=== PATIENT | female | born 2000 | race Caucasian/White ===

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

== ENCOUNTER 2018-01-16 00:37 | Emergency (ER) | payer OTHER ==
[~2018-01-16] VITALS: Ht 170.1 cm; Wt 90.7 kg
[2018-01-16 00:37] VITALS: BP 134/68
[~2018-01-16 00:37] MED LIST changes: +ANAPROX DS550 MG PO
[2018-01-16] MEDS ORDERED: ZYRTEC10 MG PO (01:44)
[2018-01-16] MEDS ORDERED: DELTASONE20 M1 PO (01:44)
[2018-01-16] MEDS ORDERED: TESSALON PERLE100 M1 PO (01:44)
== END 2018-01-16 01:44 | disposition home or self-care (01) ==
LOC: ED 00:37
DX: B34.9 Viral infection, unspecified (principal); Z79.1 Long term (current) use of non-steroidal anti-inflammatories (NSAID)

== ENCOUNTER 2018-04-16 18:41 | Emergency (ER) | payer OTHER ==
[~2018-04-16] VITALS: Wt 90.7 kg
[~2018-04-16 18:41] MED LIST changes: +DELTASONE20 M1 PO
[2018-04-16 18:43] VITALS: BP 130/81
[2018-04-16 19:32] LABS: BASO % 0.3 % (0.0-1.0); EOS # 0.1 10*3/uL (0.0-0.4); EOS % 0.8 % (1.0-4.0); HEMATOCRIT 39.4 % (37.0-47.0); HEMOGLOBIN 13.9 g/dl (12.0-16.0); LYMPH # 2.1 10*3/uL (1.3-4.4); LYMPH % 15.4 % (27.0-41.0); MEAN CELL VOLUME 87.2 fl (81.0-99.0); MEAN CORPUSCULAR HGB 30.8 pg (27.0-31.0); MEAN CORPUSCULAR HGB CONC 35.3 g/dl (33.0-37.0); MEAN PLATELET VOLUME 9.9 fl (9.6-12.3); MONO # 0.8 10*3/uL (0.1-1.0); MONO % 5.7 % (3.0-9.0); NEUT # 10.3 10*3/uL (2.3-7.9); NEUT % 77.3 % (47.0-73.0); PLATELET COUNT AUTOMATED 256 10*3/uL (130-400); RED BLOOD COUNT 4.52 10*6/uL (4.10-5.10); RED CELL DISTRI WIDTH 12.5 % (0-14.5); WHITE BLOOD COUNT 13.3 10*3/uL (4.8-10.8)
[2018-04-16 19:49] LABS: ALBUMIN 3.7 gm/dl (3.1-4.5); ALKALINE PHOSPHATASE 104 U/L (45-117); BUN 8 mg/dl (7-24); CHLORIDE 107 mmol/L (98-107); POTASSIUM 3.6 mmol/L (3.5-5.1); SGOT/AST 20 IU/L (3-35); SGPT/ALT 31 U/L (12-78); SODIUM 139 mmol/L (136-145); TOTAL PROTEIN 7.7 gm/dL (6.4-8.2)
[2018-04-16 19:54] LABS: BILIRUBIN 2+ (NEGATIVE); BLOOD NEGATIVE (NEGATIVE); CLARITY SL CLOUDY (CLEAR); COLOR YELLOW (YELLOW); GLUCOSE NEGATIVE (NEGATIVE); KETONE 2+ (NEGATIVE); LEUKO ESTERASE 1+ (NEGATIVE); NITRITE NEGATIVE (NEGATIVE); SPECIFIC GRAVITY >= 1.030 (1.005-1.030); UROBILINOGEN 0.2 E.U./dl (0.2-1.0)
[2018-04-16 20:08] LABS: BACTERIA 2+; EPITHELIAL CELLS TNTC; RBC 0-2 rbc/hpf (0-2)
[2018-04-16 20:09] LABS: MUCOUS TRACE
[2018-04-16] MEDS ORDERED: CEPHALEXIN500 M1 PO (21:29)
== END 2018-04-16 22:00 | disposition home or self-care (01) ==
LOC: ED 18:41
PROVIDERS: Nurse Practitioner Family
DX: O23.42 Unspecified infection of urinary tract in pregnancy, second trimester (principal); O21.9 Vomiting of pregnancy, unspecified; Z3A.16 16 weeks gestation of pregnancy

== ENCOUNTER 2018-06-11 08:36 | Emergency (ER) | payer OTHER ==
[~2018-06-11] VITALS: Ht 170.1 cm; Wt 112.5 kg
[2018-06-11 10:05] VITALS: BP 167/90
[2018-09-17] MEDS ORDERED: SEPTDS PO (00:37)
== END 2018-06-11 10:03 | disposition home or self-care (01) ==
LOC: ED 08:36
DX: O26.892 Other specified pregnancy related conditions, second trimester (principal); L02.31 Cutaneous abscess of buttock; Z3A.20 20 weeks gestation of pregnancy; Z79.2 Long term (current) use of antibiotics; Z79.899 Other long term (current) drug therapy

== ENCOUNTER 2018-08-15 05:45 | Emergency (ER) | payer MEDICAID ==
[~2018-08-15] VITALS: Ht 170.1 cm; Wt 125.7 kg
[2018-08-15 06:26] LABS: HEMATOCRIT 35.5 % (37.0-47.0); HEMOGLOBIN 12.1 g/dl (12.0-16.0); MEAN CELL VOLUME 91.5 fl (81.0-99.0); MEAN CORPUSCULAR HGB 31.2 pg (27.0-31.0); MEAN CORPUSCULAR HGB CONC 34.1 g/dl (33.0-37.0); MEAN PLATELET VOLUME 10.6 fl (9.6-12.3); PLATELET COUNT AUTOMATED 221 10*3/uL (130-400); RED BLOOD COUNT 3.88 10*6/uL (4.10-5.10); RED CELL DISTRI WIDTH 13.3 % (0-14.5); WHITE BLOOD COUNT 22.7 10*3/uL (4.8-10.8)
[2018-08-15 06:39] LABS: ALBUMIN 2.6 gm/dl (3.1-4.5); ALKALINE PHOSPHATASE 223 U/L (45-117); BUN 7 mg/dl (7-24); CHLORIDE 105 mmol/L (98-107); LIPASE 44 U/L (73-393); POTASSIUM 3.8 mmol/L (3.5-5.1); SGOT/AST 19 IU/L (3-35); SGPT/ALT 31 U/L (12-78); SODIUM 137 mmol/L (136-145); TOTAL PROTEIN 7.1 gm/dL (6.4-8.2)
[2018-08-15 06:44] LABS: PLATELET SUFFICIENCY NORMAL (NORMAL); TOTAL CELLS COUNTED 100 #CELLS
[2018-08-15 07:03] LABS: BILIRUBIN 1+ (NEGATIVE); BLOOD NEGATIVE (NEGATIVE); CLARITY SL CLOUDY (CLEAR); COLOR YELLOW (YELLOW); GLUCOSE NEGATIVE (NEGATIVE); KETONE TRACE (NEGATIVE); LEUKO ESTERASE TRACE (NEGATIVE); NITRITE NEGATIVE (NEGATIVE); SPECIFIC GRAVITY 1.025 (1.005-1.030)
[2018-08-15 07:14] LABS: BACTERIA 1+; MUCOUS 3+
[2018-08-15 09:26] VITALS: BP 122/65
[2018-08-15] MEDS ORDERED: MACROBID100 M1 PO (09:38)
[2018-08-15] MEDS ORDERED: ZOFRAN4 MG PO (09:38)
[2018-09-17] MEDS ORDERED: SEPTDS PO (00:37)
== END 2018-08-15 10:00 | disposition home or self-care (01) ==
LOC: ED 05:45
PROVIDERS: Emergency Medicine Emergency Medical Services
DX: O23.43 Unspecified infection of urinary tract in pregnancy, third trimester (principal); Z3A.30 30 weeks gestation of pregnancy

== ENCOUNTER 2019-03-27 03:26 | Emergency (ER) | payer MEDICAID ==
[~2019-03-27] VITALS: Ht 170.1 cm; Wt 123.8 kg
[~2019-03-27 03:26] MED LIST changes: +SEPTDS PO
[2019-03-27 03:27] VITALS: BP 136/71
== END 2019-03-27 04:26 | disposition home or self-care (01) ==
LOC: ED 03:26
DX: B34.9 Viral infection, unspecified (principal); R06.00 Dyspnea, unspecified; Z79.2 Long term (current) use of antibiotics; Z79.899 Other long term (current) drug therapy

== ENCOUNTER 2021-07-05 02:55 | Emergency (ER) | payer OTHER ==
[~2021-07-05] VITALS: Ht 167.6 cm; Wt 131.5 kg
[2021-07-05 03:05] VITALS: BP 156/82
[2021-07-05 03:33] LABS: BILIRUBIN Negative (Negative); BLOOD 3+ (Negative); CLARITY Turbid (Clear); COLOR Orange (Yellow); GLUCOSE Negative (Negative); KETONE Trace (Negative); LEUKO ESTERASE 2+ (Negative); NITRITE Negative (Negative); PH 5.5 (4.5-8.0); SPECIFIC GRAVITY >= 1.030 (1.001-1.030)
[2021-07-05 03:41] LABS: RBC TNTC rbc/hpf (0-2)
[2021-07-05] MEDS ORDERED: MACROBID100 M1 PO (03:58)
== END 2021-07-05 04:49 | disposition home or self-care (01) ==
LOC: ED 02:55
PROVIDERS: Emergency Medicine
DX: N30.91 Cystitis, unspecified with hematuria (principal)

== ENCOUNTER 2022-06-25 16:55 | Emergency (ER) | payer OTHER ==
[2022-06-25 17:32] VITALS: BP 161/103
== END 2022-06-25 18:15 | disposition home or self-care (01) ==
LOC: ED 16:55
DX: S51.812A Laceration without foreign body of left forearm, initial encounter (principal); F41.9 Anxiety disorder, unspecified; Z90.89 Acquired absence of other organs; W26.9XXA Contact with unspecified sharp object(s), initial encounter; Y93.89 Activity, other specified; Y92.89 Other specified places as the place of occurrence of the external cause; Y99.8 Other external cause status

== ENCOUNTER 2023-06-20 08:41 | Emergency (ER) | payer OTHER ==
[~2023-06-20] VITALS: Ht 170.1 cm; Wt 133.8 kg
[2023-06-20 09:10] VITALS: BP 120/66
[2023-06-20] MEDS ORDERED: PRENATAL VITAM1 EAC4 PO (09:15)
[2023-06-20] MEDS ORDERED: Metoclopramide Hydrochloride 10 MG/2 ML AMP IV ONE (09:20)
[2023-06-20] MEDS ORDERED: SODIUM CHLORIDE 0.9% 1,000 ML IV ONE (09:20)
[2023-06-20 09:42] LABS: BASO % 0.4 % (0.0-1.0); EOS # 0.1 10*3/uL (0.0-0.4); EOS % 0.5 % (1.0-4.0); HEMATOCRIT 40.4 % (37.0-47.0); LYMPH # 0.9 10*3/uL (1.3-4.4); LYMPH % 9.1 % (27.0-41.0); MEAN CELL VOLUME 89.4 fl (81.0-99.0); MEAN CORPUSCULAR HGB 29.4 pg (27.0-31.0); MEAN CORPUSCULAR HGB CONC 32.9 g/dl (33.0-37.0); MEAN PLATELET VOLUME 10.2 fl (9.6-12.3); MONO # 0.7 10*3/uL (0.1-1.0); MONO % 6.5 % (3.0-9.0); NEUT # 8.5 10*3/uL (2.3-7.9); NEUT % 83.1 % (47.0-73.0); PLATELET COUNT AUTOMATED 247 10*3/uL (130-400); RED BLOOD COUNT 4.52 10*6/uL (4.10-5.10); RED CELL DISTRI WIDTH 12.5 % (0-14.5); WHITE BLOOD COUNT 10.2 10*3/uL (4.8-10.8)
[2023-06-20 09:48] LABS: BILIRUBIN 1+ (Negative); BLOOD Negative (Negative); CLARITY Cloudy (Clear); COLOR Dark Yellow (Yellow); GLUCOSE Negative (Negative); KETONE Trace (Negative); LEUKO ESTERASE 2+ (Negative); NITRITE Negative (Negative); PH 5.5 (4.5-8.0); SPECIFIC GRAVITY >= 1.030 (1.001-1.030)
[2023-06-20 10:10] LABS: MUCOUS 1+
[2023-06-20 10:14] LABS: ALKALINE PHOSPHATASE 110 U/L (46-116); BUN 11 mg/dl (9-23); CHLORIDE 102 mmol/L (98-107); LIPASE 21 U/L (12-53); POTASSIUM 3.6 mmol/L (3.4-5.1); SGPT/ALT 32 U/L (5-49); TOTAL PROTEIN 7.3 gm/dL (6.0-8.0)
[2023-06-20] MEDS ORDERED: CEPHALEXIN500 M1 PO (10:38)
[2023-06-20] MEDS ORDERED: CEPHALEXIN 500 MG CAP PO ONE (10:40)
== END 2023-06-20 10:55 | disposition home or self-care (01) ==
LOC: ED 08:41
PROVIDERS: Emergency Medicine
DX: O23.41 Unspecified infection of urinary tract in pregnancy, first trimester (principal); N39.0 Urinary tract infection, site not specified; O21.9 Vomiting of pregnancy, unspecified; F41.9 Anxiety disorder, unspecified; R10.2 Pelvic and perineal pain; Z3A.09 9 weeks gestation of pregnancy; Z90.89 Acquired absence of other organs

== ENCOUNTER 2023-07-08 13:07 | Emergency (ER) | payer OTHER ==
[~2023-07-08] VITALS: Wt 131.5 kg
[~2023-07-08 13:07] MED LIST changes: +PRENATAL VITAM1 EAC4 PO
[2023-07-08 13:31] LABS: HEMATOCRIT 42.6 % (37.0-47.0); MEAN CORPUSCULAR HGB 29.3 pg (27.0-31.0); MEAN CORPUSCULAR HGB CONC 33.3 g/dl (33.0-37.0); MEAN PLATELET VOLUME 10.1 fl (9.6-12.3); PLATELET COUNT AUTOMATED 295 10*3/uL (130-400); RED BLOOD COUNT 4.84 10*6/uL (4.10-5.10); RED CELL DISTRI WIDTH 12.4 % (0-14.5); WHITE BLOOD COUNT 17.2 10*3/uL (4.8-10.8)
[2023-07-08 13:32] LABS: MANUAL DIFF REFLEX YES
[2023-07-08] MEDS ORDERED: SODIUM CHLORIDE 0.9% 1,000 ML IV ONE (13:35)
[2023-07-08 13:52] LABS: ALKALINE PHOSPHATASE 123 U/L (46-116); BUN 7 mg/dl (9-23); CHLORIDE 104 mmol/L (98-107); PLATELET SUFFICIENCY NORMAL (NORMAL); POTASSIUM 3.9 mmol/L (3.4-5.1); SGPT/ALT 23 U/L (5-49); TOTAL CELLS COUNTED 100 #CELLS
[2023-07-08] MEDS ORDERED: ACETAMINOPHEN 325 MG TAB PO ONE (14:55)
[2023-07-08] MEDS ORDERED: Metoclopramide Hydrochloride 5 MG TAB PO ONE (14:55)
[2023-07-08] MEDS ORDERED: METOCLOPRAMIDE H5 M1 PO (15:59)
[2023-07-08 16:00] VITALS: BP 117/61
== END 2023-07-08 16:05 | disposition home or self-care (01) ==
LOC: ED 13:07
PROVIDERS: Student in an Organized Health Care Education/Training Program
DX: O21.8 Other vomiting complicating pregnancy (principal); R19.7 Diarrhea, unspecified; R10.9 Unspecified abdominal pain; Z79.2 Long term (current) use of antibiotics; Z79.899 Other long term (current) drug therapy; Z3A.12 12 weeks gestation of pregnancy

== ENCOUNTER 2024-01-25 21:13 | Emergency (ER) | payer OTHER ==
[~2024-01-25] VITALS: Ht 170.1 cm; Wt 133.8 kg
[~2024-01-25 21:13] MED LIST changes: +METOCLOPRAMIDE H5 M1 PO
[2024-01-25 21:23] VITALS: BP 132/78
[2024-01-25] MEDS ORDERED: CEPHALEXIN 500 MG CAP PO ONE (21:40)
[2024-01-25] MEDS ORDERED: CEPHALEXIN500 M1 PO (21:40)
== END 2024-01-25 22:29 | disposition home or self-care (01) ==
LOC: ED 21:13
DX: L03.311 Cellulitis of abdominal wall (principal); F41.9 Anxiety disorder, unspecified; Z90.89 Acquired absence of other organs